=== PATIENT | female | born 1975 | race Caucasian/White ===

== ENCOUNTER 2024-04-28 19:17 | Inpatient (IN) | payer SELFPAY ==
[2024-04-28 19:42] VITALS: BMI 29.0
[2024-04-28] MEDS ORDERED: Acetaminophen 650 MG Suppository PR PRN (20:04)
[2024-04-28] MEDS: Sodium Chloride 0.9% 1,000 ML IV SCH (21:25)
[2024-04-28] MEDS: Morphine 4 MG/ML VIAL SLOW IVP PRN (21:26)
[2024-04-28 21:34] LABS: #Basophils 0.04 10x3/uL (0.0-0.2); %Basophils 0.7 % (0.0-1.0); %Eosinophils 1.8 % (0.0-10.0); %Lymphocytes 19.5 % (21.0-51.0); %Neutrophils 71.7 % (42.0-75.0); Hematocrit 45.2 % (36.0-47.0); Hemoglobin 14.7 g/dL (12.0-16.0); Mean Corpuscular HGB CONC 32.5 g/dL (32.0-36.0); Mean Corpuscular Hemoglobin 30.9 pg (27.0-31.0); Mean Corpuscular Volume 95.2 fL (78.0-98.0); Mean Platelet Volume 10.4 fL (7.4-10.4); Platelet Count 187 10x3/uL (130-400); RBC Distribution Width 12.9 % (11.5-14.5); Red Blood Cell (RBC) Count 4.75 mill/uL (4.20-5.40)
[2024-04-28] MEDS ORDERED: Piperacillin/Tazobactam 3.375 GM in Sodium Chloride 0.9% 100 ML IVPB SCH ×2 (21:45→22:00)
[2024-04-28 21:48] LABS: Lactic Acid 0.7 mmol/L (0.5-2.2)
[2024-04-28 21:51] LABS: Anion Gap 13 mmol/L (10-20); BUN (Urea Nitrogen) 11 mg/dL (7.0-18.7); Calc. Creatinine Clearance 117 mL/min (70-130); Calcium 9.9 mg/dL (7.8-10.44); Carbon Dioxide 24 mmol/L (22-29); Chloride 106 mmol/L (98-107); Estimated GFR 105; Glucose 77 mg/dL (70-105); Potassium 4.1 mmol/L (3.5-5.1); Sodium 139 mmol/L (136-145)
[2024-04-28] MEDS: Piperacillin/Tazobactam 3.375 GM in Sodium Chloride 0.9% 100 ML IVPB SCH ×3 (22:46→23:59)
[2024-04-28] MEDS: hydrALAZINE 20 MG/ML VIAL SLOW IVP PRN (22:54)
[2024-04-29] MEDS ORDERED: Piperacillin/Tazobactam 3.375 GM in Sodium Chloride 0.9% 100 ML IVPB SCH (02:00)
[2024-04-29] MEDS: Ondansetron ODT 4 MG TAB PO PRN (02:05)
[2024-04-29] MEDS: Piperacillin/Tazobactam 3.375 GM in Sodium Chloride 0.9% 100 ML IVPB SCH (02:19)
[2024-04-29 05:02] LABS: #Basophils 0.04 10x3/uL (0.0-0.2); %Basophils 0.8 % (0.0-1.0); %Eosinophils 2.4 % (0.0-10.0); %Monocytes 6.1 % (0.0-10.0); %Neutrophils 69.3 % (42.0-75.0); Hematocrit 43.3 % (36.0-47.0); Mean Corpuscular HGB CONC 32.3 g/dL (32.0-36.0); Mean Platelet Volume 10.4 fL (7.4-10.4); Platelet Count 169 10x3/uL (130-400); Red Blood Cell (RBC) Count 4.51 mill/uL (4.20-5.40)
[2024-04-29 05:18] LABS: Anion Gap 9 mmol/L (10-20); BUN (Urea Nitrogen) 12 mg/dL (7.0-18.7); Calc. Creatinine Clearance 111 mL/min (70-130); Carbon Dioxide 28 mmol/L (22-29); Chloride 108 mmol/L (98-107); Estimated GFR 98; Glucose 94 mg/dL (70-105); Potassium 3.6 mmol/L (3.5-5.1); Sodium 141 mmol/L (136-145)
[2024-04-29] MEDS ORDERED: Melatonin 3 MG TAB PO PRN (12:51)
[2024-04-29] MEDS ORDERED: Dicyclomine 20 MG TAB PO PRN (12:53)
[2024-04-29] MEDS ORDERED: hydrALAZINE 25 MG TAB PO PRN (12:56)
[2024-04-29] MEDS ORDERED: Polyethylene Glycol 3350 17 GM Packet PO PRN (12:56)
[2024-04-29] MEDS: Morphine 2 MG/ML VIAL SLOW IVP PRN (17:38)
[2024-04-29] MEDS: Cyclobenzaprine 10 MG TAB PO PRN (17:49)
[2024-04-29] MEDS: busPIRone HCl 10 MG TAB PO SCH ×2 (17:55→20:03)
[2024-04-29] MEDS: Pantoprazole DR 40 MG TAB PO SCH (20:02)
[2024-04-29] MEDS: FLUoxetine HCl 20 MG CAP PO SCH (20:02)
[2024-04-29] MEDS: Docusate 100 MG CAP PO SCH (20:02)
[2024-04-29] MEDS: HYDROcodone/Acetaminophen 5/325 mg Tablet PO PRN (20:08)
[2024-04-29] MEDS: traZODone HCl 50 MG TAB PO PRN (20:08)
[2024-04-30 05:12] LABS: #Basophils 0.05 10x3/uL (0.0-0.2); %Basophils 0.9 % (0.0-1.0); %Eosinophils 3.6 % (0.0-10.0); %Lymphocytes 19.2 % (21.0-51.0); %Monocytes 7.7 % (0.0-10.0); %Neutrophils 68.1 % (42.0-75.0); Hematocrit 44.2 % (36.0-47.0); Hemoglobin 14.3 g/dL (12.0-16.0); Mean Corpuscular HGB CONC 32.4 g/dL (32.0-36.0); Mean Corpuscular Hemoglobin 31.5 pg (27.0-31.0); Mean Corpuscular Volume 97.4 fL (78.0-98.0); Mean Platelet Volume 10.4 fL (7.4-10.4); Platelet Count 193 10x3/uL (130-400); RBC Distribution Width 12.8 % (11.5-14.5); Red Blood Cell (RBC) Count 4.54 mill/uL (4.20-5.40)
[2024-04-30 05:25] LABS: Lactic Acid 0.6 mmol/L (0.5-2.2)
[2024-04-30 05:31] LABS: ALT (SGPT) 82 U/L (8-55); AST (SGOT) 90 U/L (5-34); Albumin 3.1 g/dL (3.5-5.0); Alkaline Phosphatase 88 U/L (40-110); Anion Gap 10 mmol/L (10-20); BUN (Urea Nitrogen) 8 mg/dL (7.0-18.7); Bilirubin, Total 0.5 mg/dL (0.2-1.2); Calc. Creatinine Clearance 108 mL/min (70-130); Calcium 9.2 mg/dL (7.8-10.44); Carbon Dioxide 25 mmol/L (22-29); Chloride 110 mmol/L (98-107); Estimated GFR 95; Globulin 2.9 g/dL (2.4-3.5); Glucose 92 mg/dL (70-105); Magnesium 1.7 mg/dL (1.6-2.6); Sodium 141 mmol/L (136-145)
[2024-04-30] MEDS: Ondansetron PF 4 MG/2 ML Vial IVP PRN (09:06)
[2024-04-30] MEDS: Diazepam 5 MG TAB PO SCH (11:13)
[2024-04-30] MEDS: Promethazine 25 MG TAB PO PRN (13:18)
[2024-04-30] MEDS: Sodium Chloride 0.9% 1,000 ML IV SCH (15:39)
[2024-04-30] MEDS: Magnesium 2 GM/50 ML(in water) 2 GM in Premix 1 BAG IVPB SCH (15:42)
[2024-04-30] MEDS: Diazepam 5 MG TAB PO PRN (19:14)
[2024-04-30] MEDS: Heparin 5,000 UNITS/ML VIAL SC SCH (21:55)
[2024-05-01 05:11] LABS: #Basophils 0.05 10x3/uL (0.0-0.2); %Lymphocytes 23.6 % (21.0-51.0); %Monocytes 8.2 % (0.0-10.0); %Neutrophils 62.8 % (42.0-75.0); Hematocrit 44.9 % (36.0-47.0); Hemoglobin 14.2 g/dL (12.0-16.0); Lactic Acid 0.7 mmol/L (0.5-2.2); Mean Corpuscular HGB CONC 31.6 g/dL (32.0-36.0); Mean Corpuscular Hemoglobin 31.1 pg (27.0-31.0); Mean Corpuscular Volume 98.5 fL (78.0-98.0); Mean Platelet Volume 10.4 fL (7.4-10.4); Platelet Count 206 10x3/uL (130-400); RBC Distribution Width 12.8 % (11.5-14.5); Red Blood Cell (RBC) Count 4.56 mill/uL (4.20-5.40)
[2024-05-01 05:23] LABS: ALT (SGPT) 84 U/L (8-55); AST (SGOT) 90 U/L (5-34); Alkaline Phosphatase 94 U/L (40-110); Anion Gap 13 mmol/L (10-20); BUN (Urea Nitrogen) 8 mg/dL (7.0-18.7); Bilirubin, Total 0.4 mg/dL (0.2-1.2); Calc. Creatinine Clearance 119 mL/min (70-130); Calcium 9.4 mg/dL (7.8-10.44); Carbon Dioxide 22 mmol/L (22-29); Chloride 108 mmol/L (98-107); Estimated GFR 107; Glucose 100 mg/dL (70-105); Magnesium 1.7 mg/dL (1.6-2.6); Potassium 4.2 mmol/L (3.5-5.1); Sodium 139 mmol/L (136-145)
[2024-05-01] MEDS: NIFEdipine XL 30 MG ER.TAB PO SCH (08:38)
[2024-05-01] MEDS: Polyethylene Glycol 3350 17 GM Packet PO SCH (08:38)
[2024-05-02] MEDS: HYDROcodone/Acetaminophen 5/325 mg Tablet PO PRN (17:12)
[2024-05-02] MEDS: Acetaminophen 325 MG TAB PO PRN (21:38)
[2024-05-03 09:43] VITALS: TEMP 98
[2024-05-03 13:05] VITALS: BP 183/105
== END 2024-05-03 13:55 | disposition home or self-care (01) | DRG 391 ==
LOC: 2NO 19:17 → SURG B 04-30 17:23
PROVIDERS: ADMIT Hospitalist; ATTEND Internal Medicine
DX: K57.20 Diverticulitis of large intestine with perforation and abscess without bleeding (principal); K65.1 Peritoneal abscess; M48.56XA Collapsed vertebra, not elsewhere classified, lumbar region, initial encounter for fracture; I10 Essential (primary) hypertension; E27.8 Other specified disorders of adrenal gland; F41.9 Anxiety disorder, unspecified; F17.290 Nicotine dependence, other tobacco product, uncomplicated; K21.9 Gastro-esophageal reflux disease without esophagitis; Z88.1 Allergy status to other antibiotic agents; Z79.899 Other long term (current) drug therapy
CPT/HCPCS: 36415; 72148; 80048; 80053; 83605; 83735; 84100; 85025; J0360; J1644; J2270; J2272; J2405; J2543; J3475; J3490; J7050; Q0162; Q0169